=== PATIENT | female | born 1950 | race Caucasian/White ===

== ENCOUNTER → 2017-02-02 | Emergency (ER) | payer OTHER ==
--- NOTE | 2017-02-02 22:44 | DIAGNOSTIC IMAGING REPORT ---
PROCEDURE: ABDOMEN/PELVIS WITH CONTRAST CLINICAL INDICATION: ABDOMINAL PAIN TECHNIQUE: 75 ml of Isovue 300 were injected intravenously and axial images were obtained of the abdomen and pelvis with sagittal and coronal reformations. The patient related not anaphylactic reaction to shellfish and decision was made by the technologist and ER doctor to give half dose of contrast with post medication in the emergency room (Ashlie.) COMPARISON: None. FINDINGS: ABDOMEN: Fusiform abdominal aortic aneurysm measuring about 11 cm in length, 5.8 cm in AP diameter, and 5.9 cm in transverse diameter. The aneurysm begins proximally 1.6 cm distal to the left renal artery origin and extends to the aortic bifurcation. No periaortic inflammation or fluid. There are two nodular densities on the lateral limb of the right adrenal gland measuring approximately 14 mm and 11 mm. There is mildly heterogeneous mass associated with the lateral limb of the left adrenal gland measuring about 2.5 cm x 2.5 cm. Multiloculated partially exophytic cystic mass measuring 10.6 x 6.3 by 6.2 cm arises from the lower pole of the right kidney and extends medial to the indents upon the iliopsoas muscle. There are innumerable septations within the mass of varying thickness and a few nodular components noted. No calcification. There is trace fat stranding posterior and caudal to the mass. No adjacent adenopathy. Scattered intrarenal calcifications bilaterally are likely vascular. The stomach is filled with ingested material and demonstrates air fluid levels in the distal portion. The gallbladder is decompressed suggestive of recent ingestion. The spleen is diminutive and slightly dysmorphic suggestive of splenosis. Liver and pancreas appear normal. A few nonenlarged cecily hepatis and retroperitoneal lymph nodes are present. No bulky adenopathy. Moderate mitral annular calcification and mild visible coronary calcification. Normal sized heart. No hiatal hernia. Minor bibasilar atelectatic changes. Moderate amount of retained solid stool in the colon. Diverticulosis of the splenic flexure and throughout the descending colon. Moderate sigmoid diverticulosis without acute inflammation. No evidence of small bowel obstruction. PELVIS: Heavy calcific atherosclerosis in the pelvic arteries. A normal uterus, urinary bladder, and pelvic small bowel loops. The appendix is not visible. No adenopathy, free fluid, or pelvic mass. Degenerative facet arthropathy in the lower lumbar spine for grade 1 anterolisthesis L5 on S1 and to a lesser extent L4-5. Moderate degenerative disc height loss in the lower thoracic spine. No suspicious osseous lesions. IMPRESSION: 1. Fusiform, partially thrombosed, infrarenal, 5.8 cm mid to distal abdominal aortic aneurysm without rupture. 2. Multiloculated cystic partially exophytic right renal mass for which the differential diagnosis includes cystic renal cell carcinoma, and multiloculated cystic nephroma. Urology consult is recommended. 3. Bilateral adrenal lesions, nonspecific on contrast enhanced CT. MRI of the adrenal glands for further characterization would be useful. 4. Questionable remote splenectomy with splenosis. 5. Descending colon and sigmoid diverticulosis without acute diverticulitis. 6. Discussed with Dr. Kennedy in the emergency room. All CT scans at this facility use dose modulation, iterative reconstruction, and/or weight-based dosing when appropriate to reduce radiation dose to as low as reasonably achievable.
--- NOTE | 2017-02-02 23:53 | ED NURSING NOTES ---
Clinical Report - Nurses [facility] [address] [place] [address] 02/02/2017 19:47 Patient: CASTILLO DAVIS TRIAGE Triage time 19:57 Feb 02 2017. Acuity: LEVEL 3. Chief Complaint: ABDOMINAL PAIN and NAUSEA. 20:03 02/02/17. SEPSIS SCREEN: Sepsis Screen: negative. Negative (no infection suspected/documented). ADRIENNE COMA SCORE: Adrienne Coma Scale: 15- eyes open spontaneously (4); best verbal response- oriented x 4 (5); best motor response- obeys commands (6). --20:03 Nighat Ocampo 19:57 02/02/17. BP: 135/94. HR: 80. RR: 20. O2 saturation: 95% on room air. Temp: 98.4 F (oral). Pain level now: 03/10. --20:03 Nighat Ocampo. Weight: 68 kg stated. Height/Length: 66 inches Per Patient. BMI: 24.2. --20:01 Nighat Ocampo. Medications Nixon Oral 15mg daily. --19:59 Nighat Ocampo ClonazePAM Oral 0.5 mg, daily. Lisinopril Oral 15mg daily. Melatonin Oral 10mg daily. --19:59 Nighat Ocampo CarBAMazepine Oral. --19:59 Nighat Ocampo. Medication/allergy information source: the patient. --20:03 Nighat Ocampo. Allergies Novocain. --20:00 Nighat Ocampo Barbiturates. --20:00 Nighat Ocampo Shellfish-derived Products. --21:47 Nighat Ocampo. History Arrived by private vehicle. Historian: patient. Accompanied by family. Primary physician (chanell). This started today. ( Patient reports she has been fine all day and then went to turn and stand up and began to have severe pain in her left upper quadrant of her abdomen. She describes it as a "hard, hot feeling". She reports pain with deep inspiration at times. She reports burping and nausea but no vomiting.). Treatment DISTRIBUTION DISTRICT SUPERVISOR: (Milk of Mag). PAST MEDICAL HX: Immunizations: up-to-date. The patient is post-menopausal. SOCIAL HX: Heavy tobacco smoker (cigarette)- 1 pack per day. Alcohol use; consumes one glass of wine daily. History of drug use: marijuana. No recent travel. No infectious disease exposure. No known contact with a sick individual. ABUSE ASSESSMENT: No report of abuse. FALL RISK ASSESSMENT: Fall risk assessment completed. No fall risk identified. NUTRITIONAL RISK ASSESSMENT: The nutritional risk assessment revealed no deficiencies. FUNCTIONAL ASSESSMENT: Functional assessment: no impairments noted. LEARNING NEEDS ASSESSMENT: The learning needs assessment revealed no barriers. SKIN INTEGRITY ASSESSMENT: Skin integrity risk assessment completed. No skin integrity risk identified. --20:03 Nighat Ocampo. PROBLEMS: Depression. Anxiety Reaction. PTSD. Bipolar Disorder. Hypertension. --20:00 Nighat Ocampo. ADDITIONAL SURGERIES: Appendectomy. Lymph nodes. Oophorectomy. Splenectomy. Tonsillectomy & Adenoidectomy. --20:00 Nighat Ocampo. Interventions ID band on patient. To treatment room. --20:03 Nighat Ocampo. PHYSICAL ASSESSMENT Ambulatory to room. Patient gowned. GENERAL / NEURO / PSYCH: Alert. Oriented X 4. Appears in no acute distress. HEENT: Mucous membranes are pink. RESPIRATORY: Respirations not labored. CVS: Normal sinus rhythm noted. GI / : Abdomen nontender. Abdominal tenderness in the left upper quadrant. SKIN: Skin is warm and dry. --20:04 Nighat Ocampo. NURSING PROGRESS NOTES Pulse oximeter and NIBP monitor placed on patient; monitor alarms on. Patient gowned. Head of bed elevated. Reassurance given to the patient. Two patient identifiers checked. Call light placed in reach. Side rails up x 1. Bed placed in lowest position. Brakes of bed on. Patient ready for evaluation- chart flagged and ED physician notified. --20:04 Nighat Ocampo 20:28 02/02/2017 Site #1 started via IV in the right antecubital space with an 20g angiocath, with aseptic technique and good blood return; one attempt. Blood drawn: rainbow set. Labeled in the presence of the patient and sent to the lab. Saline lock flushed with 10 mL saline. --20:28 Nighat Ocampo 20:28 02/02/17. BP: 158/99. HR: 77. RR: 20. O2 saturation: 93%. Pain level now: 03/10. --20:29 Nighat Ocampo 20:49 02/02/2017 Ativan (LORazepam) IVP 1 mg given over 1 minute(s) via site #1. Allergies verified, confirmed 5 rights and sedative warning given to the patient. IV patency established. IV site checked: no pain, redness, or swelling. IV flushed thoroughly pre- and post-medication administration. IVP given by RN. --20:59 Nighat Ocampo 21:01 02/02/2017 NICODERM Topical Patch/Pad 21 mg. Applied to the right upper arm. Allergies verified and confirmed 5 rights. --21:01 Liza Hui ( Patient family at bedside, Patient has no complaints at this time). --21:25 Nighat Ocampo 21:21 02/02/17. BP: 139/73. HR: 73. RR: 20. O2 saturation: 96% on room air. Pain level now: 01/08. --21:25 Nighat Ocampo Patient transported to CT by stretcher with tech. (21:43 Feb 02 2017). --21:43 Nighat Ocampo ( Patient reports shellfish allergy, she states she gets some swelling with shellfish. Provider notified. Patient cleared for CT with contrast. Provider orders to treat with benadryl if symptoms occur.). --21:48 Nighat Ocampo 22:02/02/17. BP: 165/151 taken on the left arm. HR: 73. RR: 20. O2 saturation: 95%. Pain level now: 01/08. --22:07 Nighat Ocampo 22:07 02/02/17. BP: 164/75 taken on the right arm. --22:08 Nighat Ocampo 22:02/02/2017 Benadryl (DiphenhydrAMINE HCl) IVP 50 mg given over 2 minute(s) via site #1. Allergies verified, confirmed 5 rights and sedative warning given to the patient. IV patency established. IV site checked: no pain, redness, or swelling. IV flushed thoroughly pre- and post-medication administration. IVP given by RN. --22:08 Nighat Ocampo 22:36 02/02/2017 Labetalol IVP 20 mg given over 2 minute(s) via site #1. Allergies verified and confirmed 5 rights. IV patency established. IV site checked: no pain, redness, or swelling. IV flushed thoroughly pre- and post-medication administration. IVP given by RN. --22:36 Nighat Ocampo 22:36 02/02/17. BP: 145/74. HR: 63. RR: 14. O2 saturation: 96% on room air. --22:37 Nighat Ocampo ( Patient and family updated regarding plan of care. Patient agreeable to plan.). --22:37 Nighat Ocampo 22:47 02/02/2017 Zofran (Ondansetron HCl) IVP 4 mg given over 2 minute(s) via site #1. Allergies verified and confirmed 5 rights. IV patency established. IV site checked: no pain, redness, or swelling. IV flushed thoroughly pre- and post-medication administration. IVP given by RN. --22:47 Nighat Ocampo 22:47 02/02/17. BP: 131/76. HR: 65. RR: 20. O2 saturation: 95% on room air. --22:51 Nighat Ocampo ( Provider at bedside discussing plan). --22:51 Nighat Ocampo 23:23 02/02/17. BP: 122/69. HR: 63. RR: 16. O2 saturation: 96%. Pain level now: 11/08. --23:28 Quentin Garza RLanaN. DISPOSITION / DISCHARGE Condition at departure: stable. The goals identified in the patient's plan of care were met. No learning barriers present. Discharge instructions provided and reviewed with the patient and family. Reviewed warnings (Quit smoking). Patient and family verbalized understanding. Written instructions provided in [place] Island[place]. ( No strenuous activity until cleared. Follow up with vascular surgeon as discussed, contact information provided. Patient and family advised to return to ER if they had any concerns or new symptoms. Follow up with PCP regarding the renal mass that was seen on your CT. Patient and family verbalized understanding and had no additional questions at this time.). The patient was discharged by the physician. She was discharged home and accompanied by family. She left the Emergency Department ambulatory and via private vehicle. Family member driving. FALL RISK ASSESSMENT: Fall risk assessment completed. No fall risk identified. --00:13 Nighat Ocampo 00:04 02/03/17. BP: 137/70. HR: 62. RR: 20. O2 saturation: 96% on room air. Temp: 98 F (oral). Pain level now: 0/10. --00:13 Nighat Ocampo 00:09 02/03/2017 Site #1 removed upon discharge. Catheter intact. Bandaid applied. --00:14 Nighat Ocampo. Locked/Released at 02/03/2017 2:08 by Nighat Ocampo,
--- NOTE | 2017-02-02 23:53 | ED ORDER SUMMARY ---
..... Patient: CASTILLO DAVIS OrderSheet [facility] VisitID: [id number] [place] [address] 66y, F Registration Date/Time: 02/02/2017 ORDER SHEET Weight: 68.0 kg (stated) Allergies: Novocain, Barbiturates, Shellfish-derived Products GENERAL ORDERS: CT Abd/Pel w Cont (No) (N/A) Urgent (20:13 02/02/2017 Stephanie Abad) (Ack 20:15 ALawrence ER Tech1) (21:57 RFay) Carbon Capture Power Plant Manager (Continuous) (concern for AAA) (20:02/02/2017 Stephanie Abad) (Ack 20:15 ALawrence ER Tech1) (20:15 ALawrence ER Tech1) CBC w Diff Urgent (20:02/02/2017 Stephanie Abad) (Ack 20:15 ALawrence ER Tech1) (21:21 HSoule) CMP Urgent (20:02/02/2017 Stephanie Abad) (Ack 20:15 ALawrence ER Tech1) (21:28 ALawrence ER Tech1) UA-Culture if indicated Urgent (20:13 02/02/2017 Stephanie Abad) (Ack 20:15 ALawrence ER Tech1) (21:28 ALawrence ER Tech1) PT with INR Urgent (20:02/02/2017 Stephanie Abad) (Ack 20:15 ALawrence ER Tech1) (21:28 ALawrence ER Tech1) PTT Urgent (20:13 02/02/2017 Stephanie Abad) (Ack 20:15 ALawrence ER Tech1) (21:28 ALawrence ER Tech1) Lipase Urgent (20:02/02/2017 Stephanie Abad) (Ack 20:15 ALawrence ER Tech1) (21:28 ALawrence ER Tech1) Type & Screen Urgent (20:02/02/2017 Stephanie Abad) (Ack 20:15 ALawrence ER Tech1) (21:28 ALawrence ER Tech1) Pulse oximeter (20:02/02/2017 Stephanie Abad) (Ack 20:15 ALawrence ER Tech1) (20:15 ALawrence ER Tech1) D-Dimer Urgent (22:26 02/02/2017 Andreia Abad) (22:38 ALawrence ER Tech1) MEDICATION ORDERS: Nicoderm Topical 21 mg (NOW) (20:54 02/02/2017 Stephanie Abad) (Ack 20:55 ASchmuck) (21:01 ASchmuck) IV FLUIDS: IV Saline Lock (20:13 02/02/2017 Stephanie Abad) (Ack 20:18 HSoule) (20:28 HSoule) Ativan IV 1 mg (HIGH ALERT MEDICATION, NOW) (20:54 02/02/2017 Stephanie Abad) (20:59 HSoule) Benadryl IV 50 mg (NOW) (21:48 02/02/2017 HSoule verbal order read back to Stephanie Abad) (Ack 21:48 HSoule) (22:08 HSoule) Labetalol IV 20 mg (HIGH ALERT MEDICATION, NOW) (22:26 02/02/2017 Andreia Abad) (Ack 22:28 HSoule) (22:36 HSoule) Zofran IV 4 mg (NOW) (22:43 02/02/2017 Andreia Abad) (22:47 HSoule) ORDER SHEET NOTES: [Electronically signed by Nighat Ocampo (02:08 02/03/2017)] [Electronically signed by Jeff Kennedy Dr. (10:06 02/03/2017)] [Electronically locked/signed by Nighat Ocampo (02:08 02/03/2017)]
--- NOTE | 2017-02-02 23:53 | ED CLINICAL REPORT ---
Clinical Report - Physicians/Mid Levels [facility] [address] [place] [address] 02/02/2017 19:47 Patient: CASTILLO DAVIS Time Seen: 1999; initial patient contact. Arrived- By private vehicle. Historian- patient. HISTORY OF PRESENT ILLNESS Chief Complaint: ABDOMINAL PAIN. This started at 1800. It is described as "pain" and burning. No radiation. It is described as located in the left abdomen. At its maximum, severity described as moderate. When seen in the E.D., severity described as moderate. Modifying factors. Not worsened by anything. Not relieved by anything. No nausea, vomiting or diarrhea. Similar symptoms previously: None. Recent medical care: Not recently seen/assessed. REVIEW OF SYSTEMS No constipation, hematemesis, difficulty with urination, pain with urination or bloody stools. No fever, chest pain, difficulty breathing or chills. All systems otherwise negative, except as recorded above. PAST HISTORY Depression. Anxiety Reaction. PTSD. Bipolar Disorder. Hypertension. ADDITIONAL SURGERIES: Appendectomy. Lymph nodes. Oophorectomy. Splenectomy. Tonsillectomy & Adenoidectomy. Medications: CarBAMazepine Oral. ClonazePAM Oral 0.5 mg, daily. Lisinopril Oral 15mg daily. Melatonin Oral 10mg daily. [place] Oral 15mg daily. Allergies: Barbiturates. Novocain. Shellfish-derived Products. SOCIAL HISTORY Current every day smoker. Occasional alcohol use. History of drug use: marijuana. ADDITIONAL NOTES The nursing notes have been reviewed. PHYSICAL EXAM Vital Signs: 02/02/2017 19:57 BP: 135/94. HR: 80. RR: 20. O2 saturation: 95%. Temp: 98.4 F. Pain level now: 7/10. Have been reviewed. Hypertensive. Heart rate normal. Respiratory rate normal. Temperature normal. Oxygen saturation normal. Appearance: Alert. Oriented X3. No acute distress. Eyes: Eyes normal inspection. ENT: Pharynx normal. CVS: Normal heart rate and rhythm. Heart sounds normal. Pulses normal. Respiratory: No respiratory distress. Breath sounds normal. Abdomen: Soft. Moderate tenderness in the left side of the abdomen with guarding present. No rebound tenderness. Bowel sounds normal. Moderate, tender, pulsatile mass present in the left abdomen. Skin: Skin warm and dry. Normal skin color. Extremities: Extremities exhibit normal ROM. No lower extremity edema. LABS, X-RAYS, AND EKG Abdominal CT: 1. Fusiform, partially thrombosed, infrarenal, 5.8 cm mid to distal abdominal aortic aneurysm without rupture. 2. Multiloculated cystic partially exophytic right renal mass for which the differential diagnosis includes cystic renal cell carcinoma, and multiloculated cystic nephroma. Urology consult is recommended. 3. Bilateral adrenal lesions, nonspecific on contrast enhanced CT. MRI of the adrenal glands for further characterization would be useful. 4. Questionable remote splenectomy with splenosis. 5. Descending colon and sigmoid diverticulosis without acute diverticulitis. Study type: abdomen and pelvis. Abdominal CT performed with IV contrast. The study was independently viewed by me, interpreted by the radiologist and discussed with the radiologist. Prior studies were not available for comparison. Laboratory Tests: UA-Culture if indicated: (MARISSA: 02/02/2017 20:05) ( [facility] 02/02/2017 20:39) Final results Test Result Flag Units (Reference) URINE COLOR YELLOW URINE APPEARANCE CLEAR URINE GLUCOSE NEGATIVE (NEGATIVE) URINE BILIRUBIN NEGATIVE (NEGATIVE) URINE KETONE NEGATIVE (NEGATIVE) URINE SPECIFIC GRAVITY <= 1.005 L (1.010-1.030) URINE PH 7.0 (5.0-8.0) URINE PROTEIN NEGATIVE (NEGATIVE) URINE UROBILINOGEN 0.2 EU/dL (0.2-1.0) URINE NITRITE NEGATIVE (NEGATIVE) URINE BLOOD NEGATIVE (NEGATIVE) URINE LEUK ESTERASE NEGATIVE (NEGATIVE) URINE RBC RARE rbc/hpf (0-1) URINE WBC NONE SEEN wbc/hpf (0-1) URINE EPITHELIAL CELLS 0-1 EPI/hpf (0-5) URINE BACTERIA NONE SEEN (NONE SEEN) URINE COMMENT CULT NOT INDICATED URINE CULTURES ARE SET-UP BASED ON THE FOLLOWING CRITERIA:POSITIVE NITRITEPOSITIVE LEUKOCYTE ESTERASEGREATER THAN 10 WHITE BLOOD CELLSMODERATE (2+) OR GREATER BACTERIA CBC w Diff: (MARISSA: 02/02/2017 20:35) ( [facility] [place] 02/02/2017 20:51) Final results Test Result Flag Units (Reference) WHITE BLOOD COUNT 13.1 H K/uL (4.5-11.5) RED BLOOD COUNT 5.00 M/uL (4.00-5.20) HEMOGLOBIN 14.7 gm/dL (12.0-16.0) HEMATOCRIT 45.0 % (36.0-46.0) MEAN CELL VOLUME 90 fL (80-100) MEAN CORPUSCULAR HGB 30 pg (26-34) MEAN CORPUSCULAR HGB CONC 33 g/dL (31-37) RED CELL DISTRIBUTION WIDTH 13.2 % (11.6-14.8) PLATELET COUNT 371 K/uL (150-400) NEUTROPHIL % 70.4 % (50-75) LYMPH % 21.8 L % (25-40) MONO % 4.9 % (3-14) EOSINOPHIL % 1.5 % (0-4) BASOPHIL % 1.4 % (0-2) [id number]: (MARISSA: 02/02/2017 20:35) ( MsgRcvd 02/02/2017 22:46) Final results Test Result Flag Units (Reference) D-DIMER QUANTITATIVE 2.97 H ug/mLFEU (0.27-0.52) The primary value of this quantitative assay relates toits negative predictive value (i.e. exclusion) of pulmonaryembolism/deep vein thrombosis/DIC.Elevated levels of d-dimer may also occur with:, age, cancer, inflammation, liver disease,post-op, infection, hematoma, coronary disease, peripheralarteriopathy, bleeding disorders and thrombolytic treatment.Results should be correlated with other clinical andradiological data.Testing Methodology: Latex Immunoassay PT with INR: (MARISSA: 02/02/2017 20:35) ( DegRcvd 02/02/2017 21:13) Final results Test Result Flag Units (Reference) INR 0.9 (0.8-1.2) Low Intensity Therapy: INR 1.5-2.0 PT range 18.5-23.1Mod.Intensity Therapy: INR 2.0-3.0 PT range 23.1-31.5High Intensity Therapy: INR 2.5-3.5 PT range 27.4-35.5High Intensity Therapy 2: INR 3.0-4.0 PT range 31.5-39.3 APTT 29 SECONDS (24-34) CMP: (MARISSA: 02/02/2017 20:35) ( MsgRcvd 02/02/2017 21:24) Final results Test Result Flag Units (Reference) GLUCOSE 167 H mg/dL (70-110) BUN 10 mg/dL (7-18) CREATININE 0.6 mg/dL (0.6-1.3) Estimated GFR >60 mL/min Estimated GFR- >60 mL/min Note: Persistent reduction over 3 months in eGFR<60 mL/min/1.73 m2 defines CKD. Patients with eGFR values>=60 mL/min/1.73 m2 may also have CKD if evidence ofpersistent proteinuria. Additional information may be foundat www.kidney.org. SODIUM 139 mmol/L (136-145) POTASSIUM 3.8 mmol/L (3.5-5.1) CHLORIDE 102 mmol/L (98-107) CARBON DIOXIDE 29 mmol/L (21-32) CALCIUM 8.9 mg/dL (8.5-10.1) TOTAL PROTEIN 7.3 g/dL (6.4-8.2) ALBUMIN 3.6 g/dL (3.3-5.0) BILIRUBIN, TOTAL 0.2 mg/dL (0.0-1.0) ALKALINE PHOSPHATASE 119 H U/L (46-116) AST (SGOT) 12 L U/L (15-37) ALT (SGPT) 18 U/L (12-78) LIPASE 199 U/L (73-393) Type & Screen: (MARISSA: 02/02/2017 20:35) ( MsgRcvd 02/02/2017 21:40) Final results Test Result Flag Units (Reference) PATIENT BLOOD TYPE B Positive ANTIBODY SCREEN NEGATIVE . PROGRESS AND PROCEDURES Disposition: Discharged home in good and improved condition. Condition: good. CLINICAL IMPRESSION Symptomatic abdominal aortic aneurysm. No dissection, rupture, hypotension, shock or cardiac arrest. (Right Renal mass). INSTRUCTIONS No strenuous activity until released. Do not smoke- benefits of smoking cessation discussed (>3 -10 minutes). Seek medical help to quit smoking. Warnings: GENERAL WARNINGS: Return or contact your physician immediately if your condition worsens or changes unexpectedly, if not improving as expected, or if other problems arise. SPECIFICALLY, return for a return of pain in the abdomen. Your Current Medications: CONTINUE TAKING THE FOLLOWING MEDICATIONS: CarBAMazepine Oral. ClonazePAM Oral : 0.5 mg daily. Lisinopril Oral : 15mg daily. [place] Oral : 15mg daily. Melatonin Oral : 10mg daily. Follow-up: Follow up with your doctor in about two days. Call for an appointment. Follow up with doctor Gillespie Vascular Surgeon [phone]. (Electronically signed by Jeff Kennedy Dr. 02/03/2017 10:06)
--- NOTE | 2017-02-02 23:53 | ED ORDER SUMMARY ---
..... Patient: CASTILLO DAVIS OrderSheet [facility] VisitID: [id number] [place] [address] 66y, F Registration Date/Time: 02/02/2017 ORDER SHEET Weight: 68.0 kg (stated) Allergies: Novocain, Barbiturates, Shellfish-derived Products GENERAL ORDERS: CT Abd/Pel w Cont (No) (N/A) Urgent (20:13 02/02/2017 Stephanie Abad) (Ack 20:15 ALawrence ER Tech1) (21:57 RFay) Heating Worker (Continuous) (concern for AAA) (20:02/02/2017 Stephanie Abad) (Ack 20:15 ALawrence ER Tech1) (20:15 ALawrence ER Tech1) CBC w Diff Urgent (20:02/02/2017 Stephanie Abad) (Ack 20:15 ALawrence ER Tech1) (21:21 HSoule) CMP Urgent (20:02/02/2017 Stephanie Abad) (Ack 20:15 ALawrence ER Tech1) (21:28 ALawrence ER Tech1) UA-Culture if indicated Urgent (20:13 02/02/2017 Stephanie Abad) (Ack 20:15 ALawrence ER Tech1) (21:28 ALawrence ER Tech1) PT with INR Urgent (20:02/02/2017 Stephanie Abad) (Ack 20:15 ALawrence ER Tech1) (21:28 ALawrence ER Tech1) PTT Urgent (20:13 02/02/2017 Stephanie Abad) (Ack 20:15 ALawrence ER Tech1) (21:28 ALawrence ER Tech1) Lipase Urgent (20:02/02/2017 Stephanie Abad) (Ack 20:15 ALawrence ER Tech1) (21:28 ALawrence ER Tech1) Type & Screen Urgent (20:02/02/2017 Stephanie Abad) (Ack 20:15 ALawrence ER Tech1) (21:28 ALawrence ER Tech1) Pulse oximeter (20:02/02/2017 Stephanie Abad) (Ack 20:15 ALawrence ER Tech1) (20:15 ALawrence ER Tech1) D-Dimer Urgent (22:26 02/02/2017 Andreia Abad) (22:38 ALawrence ER Tech1) MEDICATION ORDERS: Nicoderm Topical 21 mg (NOW) (20:54 02/02/2017 Stephanie Abad) (Ack 20:55 ASchmuck) (21:01 ASchmuck) IV FLUIDS: IV Saline Lock (20:13 02/02/2017 Stephanie Abad) (Ack 20:18 HSoule) (20:28 HSoule) Ativan IV 1 mg (HIGH ALERT MEDICATION, NOW) (20:54 02/02/2017 Stephanie Abad) (20:59 HSoule) Benadryl IV 50 mg (NOW) (21:48 02/02/2017 HSoule verbal order read back to Stephanie Abad) (Ack 21:48 HSoule) (22:08 HSoule) Labetalol IV 20 mg (HIGH ALERT MEDICATION, NOW) (22:26 02/02/2017 Andreia Abad) (Ack 22:28 HSoule) (22:36 HSoule) Zofran IV 4 mg (NOW) (22:43 02/02/2017 Andreia Abad) (22:47 HSoule) ORDER SHEET NOTES: [Electronically signed by Nighat Ocampo (02:08 02/03/2017)] [Electronically signed by Jeff Kennedy Dr. (10:06 02/03/2017)] [Electronically locked/signed by Nighat Ocampo (02:08 02/03/2017)]
--- NOTE | 2017-02-02 23:53 | ED CLINICAL REPORT ---
Clinical Report - Physicians/Mid Levels [facility] [address] [place] [address] 02/02/2017 19:47 Patient: CASTILLO DAVIS Time Seen: 1999; initial patient contact. Arrived- By private vehicle. Historian- patient. HISTORY OF PRESENT ILLNESS Chief Complaint: ABDOMINAL PAIN. This started at 1800. It is described as "pain" and burning. No radiation. It is described as located in the left abdomen. At its maximum, severity described as moderate. When seen in the E.D., severity described as moderate. Modifying factors. Not worsened by anything. Not relieved by anything. No nausea, vomiting or diarrhea. Similar symptoms previously: None. Recent medical care: Not recently seen/assessed. REVIEW OF SYSTEMS No constipation, hematemesis, difficulty with urination, pain with urination or bloody stools. No fever, chest pain, difficulty breathing or chills. All systems otherwise negative, except as recorded above. PAST HISTORY Depression. Anxiety Reaction. PTSD. Bipolar Disorder. Hypertension. ADDITIONAL SURGERIES: Appendectomy. Lymph nodes. Oophorectomy. Splenectomy. Tonsillectomy & Adenoidectomy. Medications: CarBAMazepine Oral. ClonazePAM Oral 0.5 mg, daily. Lisinopril Oral 15mg daily. Melatonin Oral 10mg daily. [place] Oral 15mg daily. Allergies: Barbiturates. Novocain. Shellfish-derived Products. SOCIAL HISTORY Current every day smoker. Occasional alcohol use. History of drug use: marijuana. ADDITIONAL NOTES The nursing notes have been reviewed. PHYSICAL EXAM Vital Signs: 02/02/2017 19:57 BP: 135/94. HR: 80. RR: 20. O2 saturation: 95%. Temp: 98.4 F. Pain level now: 7/10. Have been reviewed. Hypertensive. Heart rate normal. Respiratory rate normal. Temperature normal. Oxygen saturation normal. Appearance: Alert. Oriented X3. No acute distress. Eyes: Eyes normal inspection. ENT: Pharynx normal. CVS: Normal heart rate and rhythm. Heart sounds normal. Pulses normal. Respiratory: No respiratory distress. Breath sounds normal. Abdomen: Soft. Moderate tenderness in the left side of the abdomen with guarding present. No rebound tenderness. Bowel sounds normal. Moderate, tender, pulsatile mass present in the left abdomen. Skin: Skin warm and dry. Normal skin color. Extremities: Extremities exhibit normal ROM. No lower extremity edema. LABS, X-RAYS, AND EKG Abdominal CT: 1. Fusiform, partially thrombosed, infrarenal, 5.8 cm mid to distal abdominal aortic aneurysm without rupture. 2. Multiloculated cystic partially exophytic right renal mass for which the differential diagnosis includes cystic renal cell carcinoma, and multiloculated cystic nephroma. Urology consult is recommended. 3. Bilateral adrenal lesions, nonspecific on contrast enhanced CT. MRI of the adrenal glands for further characterization would be useful. 4. Questionable remote splenectomy with splenosis. 5. Descending colon and sigmoid diverticulosis without acute diverticulitis. Study type: abdomen and pelvis. Abdominal CT performed with IV contrast. The study was independently viewed by me, interpreted by the radiologist and discussed with the radiologist. Prior studies were not available for comparison. Laboratory Tests: UA-Culture if indicated: (MARISSA: 02/02/2017 20:05) ( [facility] 02/02/2017 20:39) Final results Test Result Flag Units (Reference) URINE COLOR YELLOW URINE APPEARANCE CLEAR URINE GLUCOSE NEGATIVE (NEGATIVE) URINE BILIRUBIN NEGATIVE (NEGATIVE) URINE KETONE NEGATIVE (NEGATIVE) URINE SPECIFIC GRAVITY <= 1.005 L (1.010-1.030) URINE PH 7.0 (5.0-8.0) URINE PROTEIN NEGATIVE (NEGATIVE) URINE UROBILINOGEN 0.2 EU/dL (0.2-1.0) URINE NITRITE NEGATIVE (NEGATIVE) URINE BLOOD NEGATIVE (NEGATIVE) URINE LEUK ESTERASE NEGATIVE (NEGATIVE) URINE RBC RARE rbc/hpf (0-1) URINE WBC NONE SEEN wbc/hpf (0-1) URINE EPITHELIAL CELLS 0-1 EPI/hpf (0-5) URINE BACTERIA NONE SEEN (NONE SEEN) URINE COMMENT CULT NOT INDICATED URINE CULTURES ARE SET-UP BASED ON THE FOLLOWING CRITERIA:POSITIVE NITRITEPOSITIVE LEUKOCYTE ESTERASEGREATER THAN 10 WHITE BLOOD CELLSMODERATE (2+) OR GREATER BACTERIA CBC w Diff: (MARISSA: 02/02/2017 20:35) ( [facility] 02/02/2017 20:51) Final results Test Result Flag Units (Reference) WHITE BLOOD COUNT 13.1 H K/uL (4.5-11.5) RED BLOOD COUNT 5.00 M/uL (4.00-5.20) HEMOGLOBIN 14.7 gm/dL (12.0-16.0) HEMATOCRIT 45.0 % (36.0-46.0) MEAN CELL VOLUME 90 fL (80-100) MEAN CORPUSCULAR HGB 30 pg (26-34) MEAN CORPUSCULAR HGB CONC 33 g/dL (31-37) RED CELL DISTRIBUTION WIDTH 13.2 % (11.6-14.8) PLATELET COUNT 371 K/uL (150-400) NEUTROPHIL % 70.4 % (50-75) LYMPH % 21.8 L % (25-40) MONO % 4.9 % (3-14) EOSINOPHIL % 1.5 % (0-4) BASOPHIL % 1.4 % (0-2) [id number]: (MARISSA: 02/02/2017 20:35) ( MsgRcvd 02/02/2017 22:46) Final results Test Result Flag Units (Reference) D-DIMER QUANTITATIVE 2.97 H ug/mLFEU (0.27-0.52) The primary value of this quantitative assay relates toits negative predictive value (i.e. exclusion) of pulmonaryembolism/deep vein thrombosis/DIC.Elevated levels of d-dimer may also occur with:, age, cancer, inflammation, liver disease,post-op, infection, hematoma, coronary disease, peripheralarteriopathy, bleeding disorders and thrombolytic treatment.Results should be correlated with other clinical andradiological data.Testing Methodology: Latex Immunoassay PT with INR: (MARISSA: 02/02/2017 20:35) ( MngRcvd 02/02/2017 21:13) Final results Test Result Flag Units (Reference) INR 0.9 (0.8-1.2) Low Intensity Therapy: INR 1.5-2.0 PT range 18.5-23.1Mod.Intensity Therapy: INR 2.0-3.0 PT range 23.1-31.5High Intensity Therapy: INR 2.5-3.5 PT range 27.4-35.5High Intensity Therapy 2: INR 3.0-4.0 PT range 31.5-39.3 APTT 29 SECONDS (24-34) CMP: (MARISSA: 02/02/2017 20:35) ( MsgRcvd 02/02/2017 21:24) Final results Test Result Flag Units (Reference) GLUCOSE 167 H mg/dL (70-110) BUN 10 mg/dL (7-18) CREATININE 0.6 mg/dL (0.6-1.3) Estimated GFR >60 mL/min Estimated GFR- >60 mL/min Note: Persistent reduction over 3 months in eGFR<60 mL/min/1.73 m2 defines CKD. Patients with eGFR values>=60 mL/min/1.73 m2 may also have CKD if evidence ofpersistent proteinuria. Additional information may be foundat www.kidney.org. SODIUM 139 mmol/L (136-145) POTASSIUM 3.8 mmol/L (3.5-5.1) CHLORIDE 102 mmol/L (98-107) CARBON DIOXIDE 29 mmol/L (21-32) CALCIUM 8.9 mg/dL (8.5-10.1) TOTAL PROTEIN 7.3 g/dL (6.4-8.2) ALBUMIN 3.6 g/dL (3.3-5.0) BILIRUBIN, TOTAL 0.2 mg/dL (0.0-1.0) ALKALINE PHOSPHATASE 119 H U/L (46-116) AST (SGOT) 12 L U/L (15-37) ALT (SGPT) 18 U/L (12-78) LIPASE 199 U/L (73-393) Type & Screen: (MARISSA: 02/02/2017 20:35) ( MsgRcvd 02/02/2017 21:40) Final results Test Result Flag Units (Reference) PATIENT BLOOD TYPE B Positive ANTIBODY SCREEN NEGATIVE . PROGRESS AND PROCEDURES Disposition: Discharged home in good and improved condition. Condition: good. CLINICAL IMPRESSION Symptomatic abdominal aortic aneurysm. No dissection, rupture, hypotension, shock or cardiac arrest. (Right Renal mass). INSTRUCTIONS No strenuous activity until released. Do not smoke- benefits of smoking cessation discussed (>3 -10 minutes). Seek medical help to quit smoking. Warnings: GENERAL WARNINGS: Return or contact your physician immediately if your condition worsens or changes unexpectedly, if not improving as expected, or if other problems arise. SPECIFICALLY, return for a return of pain in the abdomen. Your Current Medications: CONTINUE TAKING THE FOLLOWING MEDICATIONS: CarBAMazepine Oral. ClonazePAM Oral : 0.5 mg daily. Lisinopril Oral : 15mg daily. [place] Oral : 15mg daily. Melatonin Oral : 10mg daily. Follow-up: Follow up with your doctor in about two days. Call for an appointment. Follow up with doctor Gillespie Vascular Surgeon [phone]. (Electronically signed by Jeff Kennedy Dr. 02/03/2017 10:06)
--- NOTE | 2017-02-03 10:06 | ED MED RECONCILIATION SUMMARY ---
Patient: CASTILLO DAVIS Medication Reconciliation Report [facility] VisitID: [id number] [address] [place] [address] 66y, F Registration Date/Time: 02/02/2017 Weight: 68.0 kg Height/Length: 66 in. BMI: 24.2 ALLERGIES: Barbiturates, Novocain, Shellfish-derived Products The patient's Home Medications are listed below: CONTINUE TAKING THE FOLLOWING MEDICATIONS: CarBAMazepine Oral ClonazePAM Oral 0.5 mg, daily Lisinopril Oral 15mg daily [place] Oral 15mg daily Melatonin Oral 10mg daily The source(s) of the original Home Medication information: patient The following Medications were given to the patient in the Emergency Department: Ativan [IVP] IVP 1 mg, administered: 02/02/2017 8:49:00 PM NICODERM [TOPICAL] Topical 21 mg, administered: 02/02/2017 9:01:00 PM Benadryl [IVP] IVP 50 mg, administered: 02/02/2017 10:08:00 PM Labetalol [IVP] IVP 20 mg, administered: 02/02/2017 10:36:00 PM Zofran [IVP] IVP 4 mg, administered: 02/02/2017 10:47:00 PM The following Medications were prescribed to the patient: None.
--- NOTE | 2017-02-03 10:06 | ED MAR SUMMARY ---
..... Medication Administration Record [facility] [address] [place] [address] Patient: CASTILLO DAVIS Visit ID: [id number] 66y, F Weight: 68.0 kg Height/Length: 66 in BMI: 24.2 ALLERGIES: Barbiturates, Novocain, Shellfish-derived Products Given 20:49 02/02/2017 Nighat Ocampo, Medication Administered: ATIVAN [IVP] (LORAZEPAM), Dose: 1 mg IVP over 1 minute(s), Site: #1 right AC. Medication Ordered: Ativan IV 1 mg (HIGH ALERT MEDICATION, NOW). Given 21:01 02/02/2017 Liza Hui, Medication Administered: NICODERM [TOPICAL], Dose: 21 mg Patch/Pad Topical. Medication Ordered: Nicoderm Topical 21 mg (NOW). Given 22:08 02/02/2017 Nighat Ocampo, Medication Administered: BENADRYL [IVP] (DIPHENHYDRAMINE HCL), Dose: 50 mg IVP over 2 minute(s), Site: #1 right AC. Medication Ordered: Benadryl IV 50 mg (NOW). Given 22:36 02/02/2017 Nighat Ocampo, Medication Administered: LABETALOL [IVP], Dose: 20 mg IVP over 2 minute(s), Site: #1 right AC. Medication Ordered: Labetalol IV 20 mg (HIGH ALERT MEDICATION, NOW). Given 22:47 02/02/2017 Nighat Ocampo, Medication Administered: ZOFRAN [IVP] (ONDANSETRON HCL), Dose: 4 mg IVP over 2 minute(s), Site: #1 right AC. Medication Ordered: Zofran IV 4 mg (NOW).
--- NOTE | 2017-02-03 10:06 | ED DISCHARGE INSTRUCTIONS ---
Patient: CASTILLO DAVIS General Instructions [facility] VisitID: [id number] [place] [address] 66y, F Registration Date/Time: 02/02/2017 Symptomatic abdominal aortic aneurysm. No dissection, rupture, hypotension, shock or cardiac arrest. (Right Renal mass). INSTRUCTIONS No strenuous activity until released. Do not smoke- benefits of smoking cessation discussed (>3 -10 minutes). Seek medical help to quit smoking. Warnings: GENERAL WARNINGS: Return or contact your physician immediately if your condition worsens or changes unexpectedly, if not improving as expected, or if other problems arise. SPECIFICALLY, return for a return of pain in the abdomen. Your Current Medications: CONTINUE TAKING THE FOLLOWING MEDICATIONS: CarBAMazepine Oral. ClonazePAM Oral : 0.5 mg daily. Lisinopril Oral : 15mg daily. [place] Oral : 15mg daily. Melatonin Oral : 10mg daily. Follow-up: Follow up with your doctor in about two days. Call for an appointment. Follow up with doctor Verna Vascular Surgeon [phone]. ADDITIONAL INFORMATION Abdominal Aortic Aneurysm (Stable) The aorta is the bodys main artery that carries oxygen-rich blood from the heart. It travels from the heart down to the lower abdomen, where it divides into smaller blood vessels. Certain conditions such as hypertension (high blood pressure), atherosclerosis (hardening of the arteries) and obesity, and certain lifestyles such as smoking and using stimulant drugs (cocaine and amphetamines) can weaken the wall of the aorta. An aneurysm can form in the weakened aortic wall. This appears as a small bulge in the wall of the aorta, which can slowly expand. Because the bulging area is stretched thinner than the normal aortic wall, it can rupture. A rupture of the aorta causes massive internal bleeding and . Most aortic aneurysms do not cause any symptoms until they begin to expand rapidly or rupture. Therefore, most aneurysms are discovered on exams or tests done for other reasons (like an X-ray, ultrasound or CT scan). An expanding aneurysm causes symptoms of abdomen, back, flank or groin pain, which may come and go at first, or become constant. In the case of a ruptured aneurysm, there is sudden abdominal, back or groin pain, followed by weakness, dizziness and loss of consciousness as blood pressure drops and a shock state occurs. This is a fatal condition unless immediate surgery is performed. Small aneurysms rarely rupture and can be safely treated with medicines to lower blood pressure and reduce stress on the aortic wall. Routine ultrasound or CT scans can determine if the aneurysm is growing. Larger aneurysms will require surgery. Surgical treatment involves removing the section of aorta with the aneurysm and replacing it with an aortic graft (artificial blood vessel). A newer alternative to surgery, which can be used in certain cases, involves the placement of a stent (tubular wire mesh) inside the aorta to support the wall and reduce stress on the aneurysm. Rarely, a blood clot can form inside of an aortic aneurysm with no symptoms. A piece of the clot can break off and pass to smaller blood vessels in the intestines or legs and cause pain and loss of blood flow to that part. If a small aneurysm has been identified, which does not require surgery, you should still address any lifestyle factors that may improve your overall cardiovascular health. This includes such things as following a healthy diet, losing weight, stopping smoking, and lowering your cholesterol. Home Care Your aneurysm is small and does not require surgery; you will be followed along as an outpatient with routine ultrasound screening exams to measure the size of the aneurysm every 6 months. You may return to your usual level of activity. Follow these guidelines to improve your cardiac health: If you are overweight, begin a weight loss program. If you have hypertension, reduce your salt intake. -- Avoid high salt foods (olives, pickles, smoked meats, salted potato chips, etc.). -- Do not add salt to your food at the table. -- Use only small amounts of salt when cooking. Begin an exercise program. Discuss with your doctor what type of exercise program would be best for you. It doesn't have to be difficult. Even brisk walking for 20 minutes three times a week is a good form of exercise. Avoid medicines which contain heart stimulants. This includes many cold and sinus decongestant pills and sprays as well as diet pills. Check the warnings about hypertension on the label. Stimulants such as amphetamine or cocaine could be lethal for someone with hypertension. Never take these. Limit your caffeine intake or switch to caffeine-free products. Stop smoking. If you are a long-time smoker, this can be hard. Enroll in a stop-smoking program to improve your chance of success. Learning how to handle stress better is an important part of any program to lower blood pressure. Learn about relaxation methods such as meditation, yoga or biofeedback. If medicines were prescribed for hypertension, take them exactly as directed. Missing doses may cause your blood pressure get out of control. Consider buying an automatic blood pressure machine (available at most pharmacies). Use this to monitor your blood pressure at home and report the results to your doctor. Follow Up: Regular visits to your own physician for blood pressure checks and periodic ultrasounds of the aorta are an important part of your care. Make a follow-up appointment with your doctor, or as directed by our staff. Get Prompt Medical Attention if any of the following occur: -- Sudden severe abdominal, back, flank or groin pain -- Blood in your stools -- Chest pain or shortness of breath -- Generalized weakness, dizziness or fainting -- Local weakness, numbness, pain or coolness of one leg How To Quit Smoking Smoking is one of the hardest habits to break. About half of all those who have ever smoked have been able to quit, and most of those (about 70%) who still smoke want to quit. Here are some of the best ways to stop smoking. Keep Trying: It takes most smokers about 8 tries before they are finally able to fully quit. So, the more often you try and fail, the better your chance of quitting the next time! So, don't give up! Go Cold [place]: Most ex-smokers quit cold turkey. Trying to cut back gradually doesn't seem to work as well, perhaps because it continues the smoking habit. Also, it is possible to fool yourself by inhaling more while smoking fewer cigarettes. This results in the same amount of nicotine in your body! Get Support: Support programs can make an important difference, especially for the heavy smoker. These groups offer lectures, methods to change your behavior and peer support. Call the free national Quitline for more information. 538-YRWO-KWX (715-774-2748). Low-cost or free programs are offered by many hospitals, local chapters of the [place] [employer] (090-564-2064) and the [place] [employer] (250-362-9481). Support at home is important too. Non-smokers can help by offering praise and encouragement. If the smoker fails to quit, encourage them to try again! Abzn-Wia-Udbosmy Medicines: For those who can't quit on their own, Nicotine Replacement Therapy (NRT) may make quitting much easier. Certain aids such as the nicotine patch, gum and lozenge are available without a prescription. However, it is best to use these under the guidance of your doctor. The skin patch provides a steady supply of nicotine to the body. Nicotine gum and lozenge gives temporary bursts of low levels of nicotine. Both methods take the edge off the craving for cigarettes. WARNING: If you feel symptoms of nicotine overdose, such as nausea, vomiting, dizziness, weakness, or fast heartbeat, stop using these and see your doctor. Prescription Medicines: After evaluating your smoking patterns and prior attempts at quitting, your doctor may offer a prescription medicine such as bupropion (Zyban, Wellbutrin), varenicline (Chantix, Champix), a niocotine inhaler or nasal spray. Each has its unique advantage and side effects which your doctor can review with you. Health Benefits Of Quitting: The benefits of quitting start right away and keep improving the longer you go without smokin minutes: blood pressure and pulse return to normal 8 hours: oxygen levels return to normal 2 days: ability to smell and taste begins to improve as damaged nerves start to regrow 2-3 weeks: circulation and lung function improves 1-9 months: decreased cough, congestion and shortness of breath; less tired 1 year: risk of heart attack decreases by half 5 years: risk of lung cancer decreases by half; risk of stroke becomes the same as a non-smoker For information about how to quit smoking, visit the following links: National Cancer [place] , Clearing the Air, Quit Smoking Today - an online booklet. http://www.smokefree.gov/pubs/clearing_the_air.pdf Smokefree.gov http://smokefree.gov/ QuitNet http://www.quitnet.com/ You have been given the following additional information: Abdominal Aortic Aneurysm (Stable) Smoking Cessation No strenuous activity until released. (Electronically signed by Jeff Kennedy Dr. 02/03/2017 10:06)
--- NOTE | 2017-02-03 10:06 | ED MED RECONCILIATION SUMMARY ---
Patient: CASTILLO DAVIS Medication Reconciliation Report [facility] VisitID: [id number] [address] [place] [address] 66y, F Registration Date/Time: 02/02/2017 Weight: 68.0 kg Height/Length: 66 in. BMI: 24.2 ALLERGIES: Barbiturates, Novocain, Shellfish-derived Products The patient's Home Medications are listed below: CONTINUE TAKING THE FOLLOWING MEDICATIONS: CarBAMazepine Oral ClonazePAM Oral 0.5 mg, daily Lisinopril Oral 15mg daily [place] Oral 15mg daily Melatonin Oral 10mg daily The source(s) of the original Home Medication information: patient The following Medications were given to the patient in the Emergency Department: Ativan [IVP] IVP 1 mg, administered: 02/02/2017 8:49:00 PM NICODERM [TOPICAL] Topical 21 mg, administered: 02/02/2017 9:01:00 PM Benadryl [IVP] IVP 50 mg, administered: 02/02/2017 10:08:00 PM Labetalol [IVP] IVP 20 mg, administered: 02/02/2017 10:36:00 PM Zofran [IVP] IVP 4 mg, administered: 02/02/2017 10:47:00 PM The following Medications were prescribed to the patient: None.
--- NOTE | 2017-02-03 10:06 | ED MAR SUMMARY ---
..... Medication Administration Record [facility] [address] [place] [address] Patient: CASTILLO DAVIS Visit ID: [id number] 66y, F Weight: 68.0 kg Height/Length: 66 in BMI: 24.2 ALLERGIES: Barbiturates, Novocain, Shellfish-derived Products Given 20:49 02/02/2017 Nighat Ocampo, Medication Administered: ATIVAN [IVP] (LORAZEPAM), Dose: 1 mg IVP over 1 minute(s), Site: #1 right AC. Medication Ordered: Ativan IV 1 mg (HIGH ALERT MEDICATION, NOW). Given 21:01 02/02/2017 Liza Hui, Medication Administered: NICODERM [TOPICAL], Dose: 21 mg Patch/Pad Topical. Medication Ordered: Nicoderm Topical 21 mg (NOW). Given 22:08 02/02/2017 Nighat Ocampo, Medication Administered: BENADRYL [IVP] (DIPHENHYDRAMINE HCL), Dose: 50 mg IVP over 2 minute(s), Site: #1 right AC. Medication Ordered: Benadryl IV 50 mg (NOW). Given 22:36 02/02/2017 Nighat Ocampo, Medication Administered: LABETALOL [IVP], Dose: 20 mg IVP over 2 minute(s), Site: #1 right AC. Medication Ordered: Labetalol IV 20 mg (HIGH ALERT MEDICATION, NOW). Given 22:47 02/02/2017 Nighat Ocampo, Medication Administered: ZOFRAN [IVP] (ONDANSETRON HCL), Dose: 4 mg IVP over 2 minute(s), Site: #1 right AC. Medication Ordered: Zofran IV 4 mg (NOW).
== END ==
LOC: ED SRH 19:45
DX: I71.4 Abdominal aortic aneurysm, without rupture (principal); N28.89 Other specified disorders of kidney and ureter; I10 Essential (primary) hypertension; F31.9 Bipolar disorder, unspecified; Z79.899 Other long term (current) drug therapy; F17.210 Nicotine dependence, cigarettes, uncomplicated; Z88.8 Allergy status to other drugs, medicaments and biological substances
CPT/HCPCS: 90001; 90004; 90100; 90155; 91004; 91556; 92235; 94001; 94060; 95059